=== PATIENT | male | born 1985 | race Two or more races ===

== ENCOUNTER 2017-06-17 17:42 | Emergency (ER) | payer OTHER ==
[~2017-06-17] VITALS: Ht 170.2 cm; Wt 85.7 kg
[2017-06-17 18:01] VITALS: BP 146/91
[2017-06-17] MEDS ORDERED: TETANUS-DIPTH-ACEL PERTUSSIS 0.5ML SYRG IM ONE (18:45)
[2017-06-17] MEDS ORDERED: NEOMYCIN-BACITRACIN-POLYM UNITDOSE PKG TOP OINT TOP ONE (18:45)
[2017-06-17] MEDS ORDERED: LIDOCAINE 1% (LOCAL ANESTH.) PF 5ml SDV ID ONE (18:45)
[2017-06-17] MEDS ORDERED: IBUPROFEN 800 MG TAB PO ONE (19:00)
== END 2017-06-17 21:01 | disposition home or self-care (01) ==
LOC: ER 17:42
DX: S61.412A Laceration without foreign body of left hand, initial encounter (principal); R20.0 Anesthesia of skin; W45.8XXA Other foreign body or object entering through skin, initial encounter; Y93.89 Activity, other specified; Y92.89 Other specified places as the place of occurrence of the external cause; Y99.8 Other external cause status
CPT/HCPCS: 12002; 73130; 90471; 90715